=== PATIENT | female | born 1970 | race Caucasian/White ===

== ENCOUNTER → 2024-10-16 | Day surgery (SDC) | payer OTHER ==
[2024-10-14 09:38] LABS: EOSINOPHILS # (AUTO) 0.1 (0.0-0.4); EOSINOPHILS % 2.2 % (0.0-6.0); HEMATOCRIT 39.2 % (34.2-44.1); HEMOGLOBIN 13.1 g/dL (12.0-16.0); LYMPHOCYTES # (AUTO) 0.8 (1.0-3.2); LYMPHOCYTES % 26.9 % (18.0-39.1); MEAN CORPUSCULAR HEMOGLOBIN 30.3 pg (28-32); MEAN CORPUSCULAR HGB CONC 33.4 g/dL (31-35); MEAN CORPUSCULAR VOLUME 90.5 fL (81-99); MONOCYTES # (AUTO) 0.4 (0.2-0.8); MONOCYTES % 12.2 % (4.4-11.3); NEUTROPHILS # (AUTO) 1.8 (2.1-6.9); NEUTROPHILS % 57.7 % (38.7-80.0); PLATELET COUNT 216 x10e3/uL (140-360); RED BLOOD COUNT 4.33 x10e6/uL (3.6-5.1); RED CELL DISTRIBUTION WIDTH 11.9 % (11.7-14.4); WHITE BLOOD COUNT 3.12 x10e3/uL (4.8-10.8)
[2024-10-14 09:52] LABS: ANION GAP 13.5 mmol/L (8-16); CALCIUM 8.8 mg/dL (8.4-10.2); CREATININE, SERUM 0.81 mg/dL (0.57-1.11); POTASSIUM 4.5 mmol/L (3.5-5.1)
[~2024-10-16] MED LIST: ACETAMINOPHEN 1000 MG/100 ML 100 ML IV ONE; AMITRIPTYLINE H25 MG PO; DEXAMETHASONE SOD PHOS INJ 4 MG/ML SDV ONE; ESTRADIOL1 MG PO; FAMOTIDINE 20 MG/2 ML VIAL IV ONE; FENTANYL CITRATE/PF 100MCG/2 ML INJ ONE; LIDOCAINE HCL 2% LOCAL INJ 5 ML SDV VIAL INJ ONE; MIDAZOLAM HCL 2 MG/2 ML VIAL ONE; ONDANSETRON HCL INJ 2MG/ML 2ML 2 MG/ML VIAL ONE; OXCARBAZEPINE300 MG PO; OXYBUTYNIN CHLOR5 MG PO; PROGESTERONE100 MG PO; PROPOFOL IV EMULSION 10 MG/ML 20 ML VIAL ONE; Z.0.PAXIL20 MG PO; Z.0.XANAX1 MG PO
[2024-10-16] MEDS: SCOPOLAMINE 1 MG PATCH ONE (10:57)
[2024-10-16] MEDS: CEFAZOLIN SODIUM 2 GM ONE (10:58)
[2024-10-16] MEDS: LACTATED RINGER'S 1,000 ML ONE (10:58)
[2024-10-16] MEDS: FENTANYL CITRATE/PF 100MCG/2 ML INJ ONE (12:35)
[2024-10-16] MEDS: ONDANSETRON HCL INJ 2MG/ML 2ML 2 MG/ML VIAL ONE (12:40)
[2024-10-16 13:15] VITALS: BP 143/58; PULSE 71; RESP 16; O2SAT 100
== END | disposition home or self-care (01) ==
LOC: OR 08:24
PROVIDERS: ATTEND Podiatrist Foot Surgery
DX: M20.12 Hallux valgus (acquired), left foot (principal); F41.9 Anxiety disorder, unspecified; Z01.810 Encounter for preprocedural cardiovascular examination; Z01.812 Encounter for preprocedural laboratory examination; Z01.818 Encounter for other preprocedural examination; Z79.899 Other long term (current) drug therapy
CPT/HCPCS: 28296; 36415; 71046; 80048; 85025; 93005; C1713 ×4; J0131; J1100; J2003; J2250; J2405; J2704; J3010; J7121